=== PATIENT | female | born 1960 | race Two or more races ===

== ENCOUNTER 2018-05-03 13:55 | Emergency (ER) | payer MEDICARE, OTHER ==
[~2018-05-03] VITALS: Ht 154.9 cm; Wt 117.9 kg
[2018-05-03 14:43] VITALS: BP 157/20
[2018-05-03] MEDS ORDERED: KETOROLAC TROMETHAMINE INJ 60 MG/2 ML VIAL IM ONE (15:00)
[2018-05-03] MEDS ORDERED: KETOROLAC TROMETHAMINE INJ 30 MG/ML VIAL ONE (15:12)
== END 2018-05-03 15:23 | disposition home or self-care (01) ==
LOC: ER 14:12
DX: M13.869 Other specified arthritis, unspecified knee (principal); M13.839 Other specified arthritis, unspecified wrist; M13.88 Other specified arthritis, other site; I10 Essential (primary) hypertension; E11.9 Type 2 diabetes mellitus without complications
CPT/HCPCS: 96372; 99283; A4606; J1885; Z7610

== ENCOUNTER 2019-02-07 13:13 | Inpatient (IN) | payer MEDICARE, MEDICAID ==
[~2019-02-07] VITALS: Ht 152.4 cm; Wt 121.6 kg
--- NOTE | 2019-02-07 13:40 | NUR ---
PATIENT ARRIVED AT UNIT AMBULATORY. WITH C/O COUGH AND CONGESTION X 1 WEEK, ALERT AND ORIENTED, NO ACUTE DISTRESS
[2019-02-07 13:44] LABS: BASOPHILS # (AUTO) 0.1 /CMM (0.0-0.2); BASOPHILS % (AUTO) 1.2 % (0.0-2.0); EOSINOPHILS % (AUTO) 2.2 % (0.0-6.0); HEMATOCRIT 42 % (33-45); HEMOGLOBIN 14.3 g/dL (11.5-14.8); LYMPHOCYTES # (AUTO) 3.3 /CMM (0.8-4.8); LYMPHOCYTES % (AUTO) 32.2 % (20.0-44.0); MEAN CORPUSCULAR HGB CONC 34 g/dl (31.0-36.0); MEAN CORPUSCULAR VOLUME 90 fL (82-100); MONOCYTES # (AUTO) 0.5 /CMM (0.1-1.30); MONOCYTES % (AUTO) 4.8 % (2.0-12.0); NEUTROPHILS % (AUTO) 59.6 % (43.0-81.0); PLATELET COUNT (AUTO) 299 /CMM (150-450); WHITE BLOOD COUNT (AUTO) 10.1 K/uL (4.3-11.0)
[2019-02-07 13:52] LABS: CALCIUM, SERUM 8.7 mg/dL (8.5-10.1); CARBON DIOXIDE 25 mmol/L (21-32); CHLORIDE 104 mmol/L (98-107); CREATININE 0.9 mg/dL (0.6-1.3); GLUCOSE 188 mg/dL (74-106); SODIUM SERUM 139 mmol/L (136-145); UREA NITROGEN, BLOOD 12 mg/dL (7-18)
[2019-02-07] MEDS ORDERED: BENZONATATE 100 MG CAPSULE PO ONE (14:00)
[2019-02-07] MEDS ORDERED: BENZONATATE 100 MG CAPSULE PO PRN (14:00)
--- NOTE | 2019-02-07 14:41 | NUR ---
[facility] WAS CALLED. SUPERVISOR PREPRESS WAS PAGED.
[2019-02-07] MEDS ORDERED: ASPIRIN 325 MG TABLET PO ONE (15:00)
[2019-02-07] MEDS ORDERED: ESTR0.5T PO (15:09)
[2019-02-07] MEDS ORDERED: METF-442 PO (15:09)
[2019-02-07] MEDS ORDERED: GABA800T11 PO (15:09)
[2019-02-07] MEDS ORDERED: BENA20TA9 PO (15:09)
[2019-02-07] MEDS ORDERED: MEDR2.5T7 PO (15:09)
[2019-02-07] MEDS ORDERED: ATOR40TA PO (15:09)
[2019-02-07] MEDS ORDERED: MEMA5TAB15 PO (15:09)
[2019-02-07] MEDS ORDERED: GLIM4TAB2 PO (15:09)
[2019-02-07] MEDS ORDERED: INSU100V7 SQ (15:09)
[2019-02-07] MEDS ORDERED: FERR325T23 PO (15:09)
[2019-02-07] MEDS ORDERED: ATOR10TA PO (15:12)
--- NOTE | 2019-02-07 15:13 | NUR ---
CALLED [facility] TO [facility]PAGE STATION[facility] FIREMAN
[2019-02-07] MEDS ORDERED: ASPIRIN 325 MG TABLET ONE (15:18)
--- NOTE | 2019-02-07 16:37 | NUR ---
CALLED [facility] FOR TELE BED
[2019-02-07] MEDS ORDERED: ONDANSETRON HCL/PF 4 MG/2 ML VIAL IVP PRN (17:00)
[2019-02-07] MEDS ORDERED: DEXTROSE 50%-WATER 50 ML DISP.SYRIN IV PRN (17:00)
[2019-02-07] MEDS ORDERED: HYDROCODONE/APAP 5/325MG 1 EACH TABLET PO PRN (17:00)
[2019-02-07] MEDS ORDERED: INSULIN REGULAR, HUMAN 100 UNIT/ML 3 ML VIAL SQ PRN (17:00)
[2019-02-07] MEDS ORDERED: MAGNESIUM HYDROXIDE 30 ML UDC PO PRN (17:00)
[2019-02-07] MEDS ORDERED: Z GUARD REMEDY 2 OZ OINT TP PRN (17:00)
[2019-02-07] MEDS ORDERED: ACETAMINOPHEN 325 MG TABLET PO PRN (17:00)
[2019-02-07] MEDS ORDERED: ZOLPIDEM TARTRATE 5 MG TABLET PO PRN (17:00)
[2019-02-07] MEDS ORDERED: NITROGLYCERIN 0.4 MG/TAB BOTTLE SL PRN (17:00)
[2019-02-07] MEDS ORDERED: MAG HYDROX/AL HYDROX/SIMETH 30 ML UDC PO PRN (17:00)
[2019-02-07] MEDS ORDERED: MORPHINE SULFATE INJ 2 MG/ML DISP.SYRIN IV PRN (17:00)
[2019-02-07] MEDS: BLOOD SUGAR DIAGNOSTIC 1 EACH STRIP IN SCH ×2 (17:30→21:27)
--- NOTE | 2019-02-07 17:51 | NUR ---
PLACED CALL TO [facility] AND SPOKE WITH KAYLEN RN FOR SUZETTE
--- NOTE | 2019-02-07 17:51 | NUR ---
RN NOTES REPORT OBTAINED FROM DAKOTAH LITTLE FOR A PATIENT COMING IN WITH DIAGNOSIS OF CHEST PAIN WITH TELEMETRY ACUITY UNDER THE CARE OF DR. PURCELL. ROOM PREPARED, BED ZEROED OUT. AWAITING PATIENT ARRIVAL
--- NOTE | 2019-02-07 18:27 | NUR ---
RN NOTES RECEIVED PATIENT VIA GURNEY, AMBULATORY ABLE TO TRANSFER SELF AND MAKE COMFORTABLE TO BED. ON ROOM AIR BREATHING EVEN AND UNLABORED, NO SOB NOTED AT THIS TIME. PATIENT ATTACHED TO MONITOR, NOTED WITH SINUS RHYTM, HR AT 70. VITAL SIGNS TAKEN AND NOTED AT FOLLOWS BP AT 146/61, RR AY 16, TEMP AT 98.1 SATS AT 97%. IV ACCESS NOTED ON THE L HAND G 20: IN PLACE AND INTACT. NO SIGNS OF INFILTRATION, NOTED. PERTINENT ASSESSMENT DONE. ORIENTED TO FLOOR AND USE OF CALL LIGHT. SAFETY MEASURES PUT IN PLACE. BED LOW AND LOCKED POSITIONED. CALL LIGHT PLACED WITHIN REACH, WILL CONTINUE TO ADDRESS NEED WHILE WAITING FOR ADMITTING ORDERS.
--- NOTE | 2019-02-07 18:30 | NUR ---
RN NOTES BLOOD SUGAR CHECK, NOT DONE AT THIS TIME DUE TO PATIENT REFUSED, PATIENT HAS EATEN AT THIS TIME
--- NOTE | 2019-02-07 18:34 | NUR ---
PATIENT TRANSFERRED TO [facility] 115-2 BY YAQUELIN VIA ACLS PROTOCOL
[2019-02-07] MEDS: METFORMIN 500 MG TABLET PO SCH (19:12)
[2019-02-07] MEDS: GABAPENTIN 400 MG CAPSULE PO SCH (19:12)
--- NOTE | 2019-02-07 19:15 | NUR ---
TELE/RN INITIAL NOTES RECEIVED PT IN BED EATING DINNER, FAMILY AT BEDSIDE. ON ROOM AIR, NO SOB NOTED. PT VERBALIZED PRESSURE ON CHEST. SEEN BY DR CONTE, ALL QUESTIONS AND CONCERNS WERE ANSWERED BY . ROSY G20 HEPLOCK PATENT, C/D/I. SAFETY MEASURES IN PLACED. CALL LIGHT WITHIN EASY REACH. WILL CONT TO MONITOR
[2019-02-07 20:00] VITALS: BP 135/91
[2019-02-07] MEDS ORDERED: INSULIN GLARGINE, 100 UNIT/ML CARTRIDGE SQ SCH (22:00)
[2019-02-07] MEDS ORDERED: ATORVASTATIN 10 MG TABLET PO SCH (22:00)
[2019-02-08] VITALS: BP 125/62
[2019-02-08 04:00] VITALS: BP 134/90
[2019-02-08 06:29] LABS: BASOPHILS # (AUTO) 0.1 /CMM (0.0-0.2); EOSINOPHILS % (AUTO) 2.1 % (0.0-6.0); HEMATOCRIT 41 % (33-45); HEMOGLOBIN 13.5 g/dL (11.5-14.8); LYMPHOCYTES # (AUTO) 4.6 /CMM (0.8-4.8); LYMPHOCYTES % (AUTO) 39.3 % (20.0-44.0); MEAN CORPUSCULAR HGB CONC 33 g/dl (31.0-36.0); MEAN CORPUSCULAR VOLUME 89 fL (82-100); MONOCYTES # (AUTO) 0.8 /CMM (0.1-1.30); NEUTROPHILS % (AUTO) 50.6 % (43.0-81.0); PLATELET COUNT (AUTO) 291 /CMM (150-450); RED BLOOD CELL COUNT(AUTO) 4.56 MIL/uL (4.0-5.2); WHITE BLOOD COUNT (AUTO) 11.8 K/uL (4.3-11.0)
--- NOTE | 2019-02-08 06:41 | NUR ---
RN NOTES PT IN STABLE CONDITION. NO ACUTE CHANGES THROUGHOUT SHIFT. ALL NEEDS ANTICIPATED. SAFETY MEASURES OBSERVED AT ALL TIMES. ENDORSED TO AM SHIFT RN FOR SUZETTE
[2019-02-08 06:57] LABS: CALCIUM, SERUM 8.7 mg/dL (8.5-10.1); CREATININE 0.7 mg/dL (0.6-1.3); PHOSPHORUS 3.3 mg/dL (2.5-4.9); POTASSIUM 3.5 mmol/L (3.5-5.1)
--- NOTE | 2019-02-08 07:05 | NUR ---
INDUSTRIAL LABORER OPENING NOTES PATIENT RESTING IN BED. PT ALERT AND ORIENTED X3. ON TELE MONITOR SINUS RHYTHM WITH HR 80S. COMPLAINS OF PRESSURE ON CHEST /10. WILL CONT TO MONITOR. ON ROOMAIR, NO SOB NOTED, BREATHING EVEN AND UNLABORED. IV SITE L HAND 20G, SL, SITE CDI. SAFETY MEASURES IN PLACE, BED LOCKED AND IN LOWEST POSITION, SIDE RAILS UP X2, CALL LIGHT WITHIN REACH. WILL CONT TO MONITOR PT.
[2019-02-08 07:12] LABS: THYROID STIMULATING HORMONE 4.191 uIU/mL (0.358-3.74)
[2019-02-08] MEDS: BLOOD SUGAR DIAGNOSTIC 1 EACH STRIP IN SCH ×2 (07:54→11:56)
[2019-02-08 08:00] VITALS: BP 149/75
[2019-02-08] MEDS: GABAPENTIN 400 MG CAPSULE PO SCH ×2 (08:36→12:21)
[2019-02-08] MEDS: METFORMIN 500 MG TABLET PO SCH (08:40)
[2019-02-08] MEDS ORDERED: ASPIRIN EC 81 MG TABLET.DR PO SCH (09:00)
[2019-02-08] MEDS ORDERED: MEMANTINE HCL 5 MG TABLET PO SCH (09:00)
[2019-02-08] MEDS ORDERED: BENAZEPRIL HCL 20 MG TABLET PO SCH (09:00)
[2019-02-08] MEDS ORDERED: FERROUS SULFATE (325 MG) 325 MG/TAB TABLET PO SCH (09:00)
[2019-02-08] MEDS ORDERED: GLIMEPIRIDE 4 MG TABLET PO SCH (09:00)
[2019-02-08 12:00] VITALS: BP 141/60
--- NOTE | 2019-02-08 13:50 | NUR ---
PATIENT ROUNDING WITH HOSPITALIST. WILL ATTEND TO ALL ORDERS.
[2019-02-08 16:00] VITALS: BP 126/53
[2019-02-08] MEDS ORDERED: CODE118S4 PO (16:41)
[2019-02-08] MEDS ORDERED: AZIT250T PO (16:42)
[2019-02-08] MEDS ORDERED: LEVOFLOXACIN (750 MG) 750 MG TABLET PO SCH (17:00)
--- NOTE | 2019-02-08 17:30 | NUR ---
[employer] NOTES PATIENT STABLE. ALERT AND ORIENTED X4. VITAL SIGNS WNL, AFEBRILE. PT REFUSED 1600 AND 1700 MEDICATIONS. ON ROOMAIR, NO SOB NOTED, BREATHING EVEN AND UNLABORED. SAFETY MEASURES IN PLACE THROUGHOUT SHIFT. EXIT CARE DONE. DISCHARGE INSTRUCTION/EDUCATION GIVEN. IV REMOVED, SITE CLEAN AND DRY. PATIENT AMBULATORY AND LEFT THE UNIT WITH .
== END 2019-02-08 17:30 | disposition home or self-care (01) | DRG 202 ==
LOC: ER 13:13 → TELE1 17:27 → MEDSG1 02-08 11:50
PROVIDERS: ATTEND Nurse Practitioner Acute Care
DX: J20.9 Acute bronchitis, unspecified (principal); Z68.43 Body mass index [BMI] 50.0-59.9, adult; M94.0 Chondrocostal junction syndrome [Tietze]; I10 Essential (primary) hypertension; F03.90 Unspecified dementia, unspecified severity, without behavioral disturbance, psychotic disturbance, mood disturbance, and anxiety; E11.40 Type 2 diabetes mellitus with diabetic neuropathy, unspecified; E66.01 Morbid (severe) obesity due to excess calories; G47.33 Obstructive sleep apnea (adult) (pediatric); E11.65 Type 2 diabetes mellitus with hyperglycemia; Z87.01 Personal history of pneumonia (recurrent); E66.9 Obesity, unspecified; Z71.3 Dietary counseling and surveillance; Z79.4 Long term (current) use of insulin; Z72.820 Sleep deprivation; Z79.84 Long term (current) use of oral hypoglycemic drugs
CPT/HCPCS: 36415; 71045-TC; 80048-TC; 80061-TC; 82962-TC; 83735-TC; 84100-TC; 84443-TC; 84484-TC; 85025-TC; 87081-TC; 93307-TC; G0378; J1815

== ENCOUNTER 2019-06-17 20:33 | Emergency (ER) | payer MEDICARE, MEDICAID ==
[~2019-06-17] VITALS: Ht 152.4 cm; Wt 120.7 kg
[~2019-06-17 20:33] MED LIST: ATOR10TA PO; AZIT250T PO; BENA20TA9 PO; CODE118S4 PO; ESTR0.5T PO; FERR325T23 PO; GABA800T11 PO; GLIM4TAB4 PO; INSU100V7 SQ; MEDR2.5T7 PO; MEMA5TAB15 PO; METF-442 PO
--- NOTE | 2019-06-17 20:41 | NUR ---
"C/C SUDDEN ONSET OF DIZZINESS AT 6PM, DENIES PAIN" [id number], -SOB, NAD NOTED, VSS ,PENDING MD RAMÍREZ
[2019-06-17] MEDS ORDERED: MECLIZINE HCL 25 MG TABLET PO ONE (21:00)
[2019-06-17] MEDS ORDERED: IV NS 0.9% 500 ML BAG IV ONE (21:00)
[2019-06-17] MEDS ORDERED: ONDANSETRON HCL/PF 4 MG/2 ML VIAL IV ONE (21:00)
[2019-06-17] MEDS ORDERED: ONDANSETRON HCL/PF 4 MG/2 ML VIAL ONE (21:01)
[2019-06-17] MEDS ORDERED: MECLIZINE HCL 25 MG TABLET ONE (21:02)
[2019-06-17 21:13] LABS: BASOPHILS # (AUTO) 0.2 /CMM (0.0-0.2); BASOPHILS % (AUTO) 1.2 % (0.0-2.0); EOSINOPHILS % (AUTO) 3.1 % (0.0-6.0); HEMATOCRIT 42 % (33-45); HEMOGLOBIN 13.9 g/dL (11.5-14.8); LYMPHOCYTES # (AUTO) 3.9 /CMM (0.8-4.8); LYMPHOCYTES % (AUTO) 26.4 % (20.0-44.0); MEAN CORPUSCULAR HGB CONC 33 g/dl (31.0-36.0); MEAN CORPUSCULAR VOLUME 92 fL (82-100); MONOCYTES # (AUTO) 0.7 /CMM (0.1-1.30); NEUTROPHILS # (AUTO) 9.5 /CMM (1.8-8.9); NEUTROPHILS % (AUTO) 64.3 % (43.0-81.0); PLATELET COUNT (AUTO) 263 /CMM (150-450); RED BLOOD CELL COUNT(AUTO) 4.57 MIL/uL (4.0-5.2); WHITE BLOOD COUNT (AUTO) 14.8 K/uL (4.3-11.0)
[2019-06-17 21:34] LABS: CALCIUM, SERUM 8.9 mg/dL (8.5-10.1); CARBON DIOXIDE 23 mmol/L (21-32); CHLORIDE 104 mmol/L (98-107); CREATININE 0.8 mg/dL (0.6-1.3); GLUCOSE 168 mg/dL (74-106); POTASSIUM 3.8 mmol/L (3.5-5.1); SODIUM SERUM 141 mmol/L (136-145); UREA NITROGEN, BLOOD 10 mg/dL (7-18)
[2019-06-17 22:02] LABS: APPEARANCE,URINE Clear (CLEAR); BILIRUBIN,URINE Negative (NEGATIVE); BLOOD, URINE Negative Ery/uL (NEGATIVE); COLOR,URINE Yellow (YELLOW); KETONES,URINE Negative (NEGATIVE); LEUKOCYTE ESTERASE ,URINE Small (NEGATIVE); NITRITE, URINE Negative (NEGATIVE); PROTEIN,URINE Negative (NEGATIVE); UGLUCOSE Negative (NEGATIVE); UROBILINOGEN,URINE 0.2 EU/dL (0.2)
[2019-06-17 22:13] LABS: BACTERIA,URINE Few /HPF (None Seen); RBC,URINE 0-2 /HPF (0-2); SQUAMOUS EPITHELIAL CELL,UR Few /HPF (None Seen)
[2019-06-17 22:14] LABS: YEAST,URINE Rare /HPF (None Seen)
--- NOTE | 2019-06-17 22:54 | NUR ---
Patient discharged to home in stable condition. Written and verbal after care instructions given. Patient verbalizes understanding of instruction. IV removed. Catheter intact and site benign. Pressure and 4x4 applied to site. No bleeding noted.
[2019-06-17 23:00] VITALS: BP 132/90
== END 2019-06-17 23:01 | disposition home or self-care (01) ==
LOC: ER 20:35
DX: H81.10 Benign paroxysmal vertigo, unspecified ear (principal); D72.829 Elevated white blood cell count, unspecified; D72.89 Other specified disorders of white blood cells; I10 Essential (primary) hypertension; E78.5 Hyperlipidemia, unspecified; E11.65 Type 2 diabetes mellitus with hyperglycemia; E66.01 Morbid (severe) obesity due to excess calories; G30.9 Alzheimer's disease, unspecified; F02.80 Dementia in other diseases classified elsewhere, unspecified severity, without behavioral disturbance, psychotic disturbance, mood disturbance, and anxiety; E78.00 Pure hypercholesterolemia, unspecified; Z68.43 Body mass index [BMI] 50.0-59.9, adult; Z79.4 Long term (current) use of insulin
CPT/HCPCS: 36415; 70450; 71045; 80048; 81001; 84484; 85025; 85730; 87086; 93005; 96374; 99284; J2405; J7040; J8597; 81000-TC